=== PATIENT | male | born 1970 | race Caucasian/White ===

== ENCOUNTER 2018-10-12 23:49 | Emergency (ER) | payer MEDICAID ==
[~2018-10-12] VITALS: Ht 177.8 cm; Wt 92.0 kg
[2018-10-13 02:58] VITALS: BP 117/79
== END 2018-10-13 03:00 | disposition home or self-care (01) ==
LOC: ED 10-13 02:54
DX: R10.84 Generalized abdominal pain (principal); M45.8 Ankylosing spondylitis sacral and sacrococcygeal region; F17.200 Nicotine dependence, unspecified, uncomplicated
CPT/HCPCS: 36415; 71045; 74177; 80053; 83605; 83690; 85025; 93005; 96374; 96375; 99284; J2270; J2405; Q9967